=== PATIENT | female | born 1985 | race Two or more races ===

== ENCOUNTER → 2019-09-12 | Outpatient (CLI) | payer OTHER | END | disposition home or self-care (01) | LOC: PRENATAL 14:30 | DX: O35.3XX0 Maternal care for (suspected) damage to fetus from viral disease in mother, not applicable or unspecified (principal); Z36.89 Encounter for other specified antenatal screening ==

== ENCOUNTER → 2019-12-16 | Outpatient (CLI) | payer OTHER | END | disposition home or self-care (01) | LOC: PRENATAL 11:00 | PROVIDERS: ATTEND Obstetrics & Gynecology Maternal & Fetal Medicine | DX: O26.843 Uterine size-date discrepancy, third trimester (principal); O36.8131 Decreased fetal movements, third trimester, fetus 1; Z36.89 Encounter for other specified antenatal screening; Z3A.35 35 weeks gestation of pregnancy ==

== ENCOUNTER 2020-01-15 14:45 | Inpatient (IN) | payer OTHER ==
[~2020-01-15] VITALS: Ht 162.6 cm; Wt 3.6 kg
[2020-01-22] MEDS ORDERED: PRENATAL TABLE1 EAC3 PO (10:06)
[2020-01-25] MEDS ORDERED: CODE1TAB37 PO (12:13)
[2020-01-25] MEDS ORDERED: NAPR500T14 PO (12:13)
[2020-01-25] MEDS ORDERED: DOCUSATE SODIU100 MG PO (12:13)
== END 2020-01-25 13:57 | disposition home or self-care (01) | DRG 788 ==
LOC: OB/GYN 01-22 07:14 → LDR 01-22 07:14 → OB/GYN 01-23 08:56 → LDR 01-26 14:45
PROVIDERS: ADMIT Obstetrics & Gynecology; ATTEND Obstetrics & Gynecology
PROC: 4A1HXCZ Monitoring of Products of Conception, Cardiac Rate, External Approach (ICD-10-PCS; 2020-01-22)
PROC: 10D00Z1 Extraction of Products of Conception, Low, Open Approach (ICD-10-PCS; principal; 2020-01-22 20:00)
DX: O62.1 Secondary uterine inertia (principal); O82 Encounter for cesarean delivery without indication; Z3A.39 39 weeks gestation of pregnancy; Z37.0 Single live birth; Z20.828 Contact with and (suspected) exposure to other viral communicable diseases

== ENCOUNTER 2021-09-28 14:10 | Outpatient (CLI) | payer OTHER ==
[~2021-09-28 14:10] MED LIST: CODE1TAB37 PO; DOCUSATE SODIU100 MG PO; NAPR500T14 PO; PRENATAL TABLE1 EAC3 PO
== END 2021-09-28 15:30 | disposition home or self-care (01) ==
LOC: PRENATAL 14:10
PROVIDERS: ATTEND Obstetrics & Gynecology Maternal & Fetal Medicine
DX: O35.0XX0 Maternal care for (suspected) central nervous system malformation in fetus, not applicable or unspecified (principal); O35.3XX0 Maternal care for (suspected) damage to fetus from viral disease in mother, not applicable or unspecified; O34.219 Maternal care for unspecified type scar from previous cesarean delivery; Z3A.22 22 weeks gestation of pregnancy

== ENCOUNTER 2022-01-19 08:19 | Inpatient (IN) | payer OTHER ==
[~2022-01-19] VITALS: Ht 162.6 cm; Wt 70.8 kg
[2022-01-22] MEDS ORDERED: NAPR500T14 PO (12:12)
[2022-01-22] MEDS ORDERED: Tylenol #3 PO (12:12)
== END 2022-01-22 12:50 | disposition home or self-care (01) | DRG 788 ==
LOC: OB/GYN 08:19 → LDR 08:19 → O/R 13:47 → OB/GYN 14:50
PROVIDERS: ADMIT Obstetrics & Gynecology; ATTEND Obstetrics & Gynecology
PROC: 4A1HXCZ Monitoring of Products of Conception, Cardiac Rate, External Approach (ICD-10-PCS; 2022-01-19)
PROC: 10D00Z1 Extraction of Products of Conception, Low, Open Approach (ICD-10-PCS; principal; 2022-01-19 11:45)
DX: O34.211 Maternal care for low transverse scar from previous cesarean delivery (principal); Z3A.39 39 weeks gestation of pregnancy; Z37.0 Single live birth; Z20.822 Contact with and (suspected) exposure to COVID-19